=== PATIENT | male | born 1975 | race Caucasian/White ===

== ENCOUNTER → 2021-02-09 | Outpatient (CLI) | payer BC ==
[~2021-02-09] MED LIST: BACTRIM DS TAB1 EACH PO; KEFLEX CAP 500500 MG PO; LEVAQUIN750 MG PO; NAPROSYN500 MG PO
[2021-02-09 10:04] LABS: GLUCOSE,CSF 59 mg/dL (50-80); TOTAL PROTEIN,CSF 35 mg/dL (20-45)
[2021-02-09 10:07] LABS: WBC (AUTOMATED 8 10^3 (0-5)
[2021-02-09 10:08] LABS: WBC (AUTOMATED 6 10^3 (0-5)
[2021-02-10 15:11] LABS: CSF IGG INDEX 1.7 (0.0-0.7); IMMUNOGLOBULIN G, QN, SERUM 799 mg/dL (603-1613)
[2021-02-11 17:12] LABS: MYELIN BASIC PROTEIN, CSF 4.7 ng/mL (0.0-4.7)
== END ==
LOC: RAD 07:18
PROVIDERS: Psychiatry & Neurology Neurology
PROC: 009U3ZX Drainage of Spinal Canal, Percutaneous Approach, Diagnostic (ICD-10-PCS; principal; 2021-02-09)
DX: G35 Multiple sclerosis (principal)
CPT/HCPCS: 36415; 82040; 82784; 82945; 83873; 83916; 84157; 87015; 87070; 87116; 87205; 87210; 87252; 89051; 96365

== ENCOUNTER 2021-08-02 06:59 | Emergency (ER) | payer BC ==
[2021-08-02 07:47] LABS: RED BLOOD COUNT 4.83 M/UL (4.20-5.50)
[2021-08-02 08:08] LABS: BUN/CREATININE RATIO 13 (0-10)
== END 2021-08-02 10:16 | disposition home or self-care (01) ==
LOC: ER1 06:59
PROVIDERS: Emergency Medicine
DX: R07.89 Other chest pain (principal)
CPT/HCPCS: 71045; 73080; 80053; 82550; 82553; 83874; 84484; 85025; 93005; 99285

== ENCOUNTER 2021-09-24 07:21 | Emergency (ER) | payer BC ==
[2021-09-24] MEDS ORDERED: IBUPROFEN600 MG PO (07:57)
[2021-09-24] MEDS ORDERED: MEDROL DOSEPAK 24 MG PO (07:57)
== END 2021-09-24 08:24 | disposition home or self-care (01) ==
LOC: ER1 07:21
DX: S39.012A Strain of muscle, fascia and tendon of lower back, initial encounter (principal); F17.210 Nicotine dependence, cigarettes, uncomplicated; X58.XXXA Exposure to other specified factors, initial encounter
CPT/HCPCS: 96372; 99283; J1100; J1885

== ENCOUNTER → 2021-10-12 | Outpatient (CLI) | payer BC ==
[~2021-10-12] MED LIST changes: +IBUPROFEN600 MG PO; +MEDROL DOSEPAK 24 MG PO
== END ==
LOC: EMI 13:51
DX: G35 Multiple sclerosis (principal); J32.9 Chronic sinusitis, unspecified
CPT/HCPCS: 70553; 72156; A9577

== ENCOUNTER 2022-06-02 02:18 | Emergency (ER) | payer BC ==
[2022-06-02] MEDS ORDERED: PROVENTIL HFA6.7 GM INH (04:52)
[2022-06-02] MEDS ORDERED: ZOFRAN ODT 4 MG4 MG PO (04:52)
[2022-06-02] MEDS ORDERED: FLORASTOR250 MG PO (04:52)
[2022-06-02] MEDS ORDERED: IBUPROFEN600 MG PO (04:52)
== END 2022-06-02 05:00 | disposition home or self-care (01) ==
LOC: ER1 02:18
DX: J06.9 Acute upper respiratory infection, unspecified (principal); M79.10 Myalgia, unspecified site; R19.7 Diarrhea, unspecified; Z20.822 Contact with and (suspected) exposure to COVID-19
CPT/HCPCS: 71045; 99283; U0002